=== PATIENT | male | born 1975 | race Caucasian/White ===

== ENCOUNTER 2022-09-08 07:56 | Day surgery (SDC) | payer OTHER, BC ==
[2022-09-07 10:52] LABS: ALBUMIN 4.1 G/DL (3.4-5.0); ALBUMIN/GLOBULIN RATIO 1.4 (1.1-1.5); ALKALINE PHOSPHATASE 62 IU/L (46-116); BLOOD UREA NITROGEN 12 MG/DL (7-18); CALCIUM 8.8 MG/DL (8.5-10.1); CHLORIDE 103 MMOL/L (99-107); CREATININE 0.92 MG/DL (0.60-1.10); PRE OP ALT 30 U/L (30-65); PRE OP ANION GAP 6 (8-16); PRE OP AST 19 U/L (10-37); PRE OP BILIRUB, TOTAL 0.5 MG/DL (0.0-1.0); PRE OP GLUCOSE 94 MG/DL (70-104); PRE OP POTASSIUM 4.4 MMOL/L (3.4-5.1); PRE OP SODIUM 139 MMOL/L (135-145); TOTAL CARBON DIOXIDE 29.6 MMOL/L (24-32); TOTAL PROTEIN 7.1 G/DL (6.4-8.2); eGFR 88 ML/MIN
[2022-09-07 11:07] LABS: CLARITY,URINE CLEAR (Clear); COLOR,URINE YELLOW (Yellow); GLUCOSE, URINE NEGATIVE (Neg); KETONES,URINE NEGATIVE (Neg); LEUKOCYTE ESTERASE ,URINE NEGATIVE (Neg); NITRITES, URINE NEGATIVE (Neg); OCCULT BLOOD,URINE NEGATIVE (Neg); PROTEIN,URINE NEGATIVE (Neg); UROBILINOGEN,URINE 0.2 E.U/dL (0.2-1.0)
[2022-09-07 11:09] LABS: UA COLLECTION TYPE CLN CATCH MIDSTREAM
[2022-09-07 11:13] LABS: BASOPHILS % (AUTO) 1.2 % (0-1); EOSINOPHILS # (AUTO) 0.1 X10'3 (0-0.9); LYMPHOCYTES % (AUTO) 34.9 % (21-51); MEAN CORPUSCULAR HEMOGLOBIN 31.6 PG (27.0-31.0); MEAN CORPUSCULAR HGB CONC 34.5 g/dL (33.0-36.5); MEAN CORPUSCULAR VOLUME 91.5 FL (78-98); MONOCYTES # (AUTO) 0.4 X10'3 (0-0.9); MONOCYTES % (AUTO) 12.3 % (2-12); NEUTROPHILS # (AUTO) 1.4 X10'3 (1.8-7.7); NEUTROPHILS % (AUTO) 47.6 % (42-75); PRE OP HEMATOCRIT 42.5 % (42.0-52.0); PRE OP HEMOGLOBIN 14.7 g/dL (14.0-17.9); PRE OP PLATELET COUNT 247 X10'3 (140-440); RED BLOOD COUNT 4.64 X10'6 (4.70-6.10); RED CELL DISTRIBUTION WIDTH 13.8 % (11.5-14.5)
[2022-09-07 14:08] LABS: PLATELET ESTIMATE NORMAL; TOTAL CELLS COUNTED 100
[2022-09-07 14:09] LABS: STOMATOCYTES 1+
[~2022-09-08] VITALS: Ht 188 cm; Wt 89.1 kg
[2022-09-08] VITALS (8 sets, daily range): BP systolic 107–133; BP diastolic 60–92
[~2022-09-08 07:56] MED LIST: NO HOME MEDS; cefazolin 2gm/D5W 100mL 100 ML IV ONE; famotidine 20mg tablet PO ONE; ringers solution, lacted 1,000 ML IV SCH
[2022-09-08] MEDS ORDERED: BUPIVAcaine/PF 2.5mg/ml (0.25%) 10ml vial ONE (12:22)
[2022-09-08] MEDS ORDERED: bacitracin 15gm ointment TP ONE (12:23)
[2022-09-08] MEDS ORDERED: morphine 4 MG/ML inj SYRINge IV PRN (12:50)
[2022-09-08] MEDS ORDERED: meperidine/PF 25mg/ml syringe IV PRN ×2 (12:50)
[2022-09-08] MEDS ORDERED: proCHLORperazine 10 MG/2 ml inj IV PRN (12:50)
[2022-09-08] MEDS ORDERED: morphine 2 MG/ML inj. syringe IV PRN (12:50)
[2022-09-08] MEDS ORDERED: ondansetron/PF 4mg/2ml inj IV PRN (12:50)
[2022-09-08] MEDS ORDERED: ringers solution, lacted 1,000 ML IV SCH (12:50)
[2022-09-08] MEDS ORDERED: sevoflurane 250ml liquid IH ONE (13:09)
[2022-09-08] MEDS ORDERED: fentaNYL/PF 50MCG/1 ML 2ML syringe ONE (13:11)
[2022-09-08] MEDS ORDERED: midazolam 1 mg/ML 2ml injection ONE (13:12)
[2022-09-08] MEDS ORDERED: ROPIVAcaine 0.5% (5mg/ml) 30ml vial ONE (13:18)
[2022-09-08] MEDS ORDERED: dexamethasone sod phosphate 4mg/ml inj. ONE (14:00)
[2022-09-08] MEDS ORDERED: propofol inj 20 ML IV ONE (14:00)
[2022-09-08] MEDS ORDERED: ondansetron/PF 4mg/2ml inj ONE (14:43)
--- NOTE | 2022-09-08 14:49 | NUR ---
Received from OR via [facility], accompanied by Anesthesiologist and report given by DAVID Anesthesiologist. PATIENT WAKING UP, DENIES PAIN, V/S WNL, 18G TO RIGHT FOREARM, LEFT ANKLE DRESSING C/D/I. ELEVATE AND ICE PACK LEFT LOWER EXTREMITY. Addendum: 09/08/22 at 1504 by Lamin Espino RN Amended: Links added.
[2022-09-08] MEDS: meperidine/PF 25mg/ml syringe IV PRN ×2 (15:10→15:16)
--- NOTE | 2022-09-08 15:49 | NUR ---
ALL DISCHARGE CRITERIA HAS BEEN MET. VSS, PAIN AT A TOLERABLE LEVEL, ABLE TO SAFELY AMBULATE AND TRANSFER SELF. IV TAKEN OUT WITHOUT ANY COMPLICATIONS. ALL DISCHARGE INSTRUCTIONS COVERED WITH PATIENT AND ALL QUESTIONS ANSWERED. PATIENT TAKEN OUT VIA WHEELCHAIR WITH ALL BELONGINGS TO PERSONAL VEHICLE WHERE FAMILY DROVE PATIENT HOME. Addendum: 09/08/22 at 1552 by Lamin Espino RN Amended: Links added.
== END 2022-09-08 15:49 | disposition home or self-care (01) ==
LOC: PAS 07:56
PROVIDERS: ATTEND Podiatrist Foot & Ankle Surgery
DX: S82.62XA Displaced fracture of lateral malleolus of left fibula, initial encounter for closed fracture (principal); G89.18 Other acute postprocedural pain; Z98.890 Other specified postprocedural states; Z79.82 Long term (current) use of aspirin; Z79.899 Other long term (current) drug therapy; Z88.8 Allergy status to other drugs, medicaments and biological substances; Z72.89 Other problems related to lifestyle; X50.1XXA Overexertion from prolonged static or awkward postures, initial encounter; Y93.72 Activity, wrestling; Y92.89 Other specified places as the place of occurrence of the external cause; Y99.8 Other external cause status
CPT/HCPCS: 27792; 36415; 64445; 80053; 81003; 82948; 85025; 93005; A6223; C1713; J0690; J1100; J2175; J2250; J2405; J2704; J2795; J3010; J3490; J7030; J7120; Z7506; Z7508; Z7512; 85007; A4618; A6253; A6449; A7000